=== PATIENT | female | born 1940 | race Caucasian/White ===

== ENCOUNTER 2024-02-13 13:33 | Emergency (ER) | payer MEDICARE, SELFPAY ==
[2024-02-13 13:45] VITALS: BP 166/58
--- NOTE | 2024-02-13 13:49 | ED.GENMED ---
History of Present Illness
<Rj Mccabe PA-C - Last Filed: 02/13/24 16:09>
General
Chief Complaint: Musculo-Skeletal Complaint
Time Seen by Provider: 02/13/24 13:40
History of Present Illness
History of Present Illness:
83 yo female w/ hx of CAD, HLD, HTN and dementia presents to the Emergency Department from [facility] [place] for evaluation after an unwitnessed fall. On arrival pt is soiled with feces. She cannot provide details of the fall. Complains of
headache and L shoulder pain. Not on OAC.
Past History
<Rj Mccabe PA-C - Last Filed: 02/13/24 16:09>
Past History
ED Past Medical History: HTN, Hypercholesterolemia and NIDDM
ED Past Surgical History: Cholecystectomy
Social History
Tobacco: Former smoker
Alcohol: None
Drug: None
Review of Systems
<Rj Mccabe PA-C - Last Filed: 02/13/24 16:09>
Review of Systems
Allergies reviewed?: Yes
All Other Systems: ROS reviewed and negative except as documented in HPI and ROS
Phy Exam
<Rj Mccabe PA-C - Last Filed: 02/13/24 16:09>
Physical Exam
Physical Exam:
GEN: Well appearing, NAD, WDWN
Eyes: PERRLA, EOMs intact, no scleral icterus
HENT: NCAT, oral mucosa moist, no JVD, no cervical adenopathy.
Lungs: CTAB, no wheezes, rales, rhonchi, normal chest wall excursion
Cardiac: RRR, no M/R/G, no peripheral edema. Radial pulses 2+ bilat
Abdomen: S, NT, ND, NABS, no masses or hepatosplenomegaly
Neuro: AO x 2. Unable to move the LUE however normal movement of RUE and BLE
MSK: No gross deformity or ecchymosis. TEnderness to the L proximal humerus, no palpable deformity. L radial pulse 2+
Skin: No rashes, petechiae. Normal color, no pallor or jaundice.
Psych: Calm, cooperative, proper hygiene
Course
<Rj Mccaeb PA-C - Last Filed: 02/13/24 16:09>
Orders/Labs/Results
Orders:
Orders
02/13/24 13:47
CT Cervical Spine W/o Iv Contr Urgent
Comment:
Reason For Exam: fall
CT Head W/o Iv Contrast Urgent
Comment:
Reason For Exam: fall head injury
CR Elbow - Left Min 3 Views Urgent
Comment:
Reason For Exam: fall
CR Humerus - Left Min 2 Views* Urgent
Comment:
Reason For Exam: fall
02/13/24 13:49
Electrocardiogram (*1) Urgent
Reason for Study: QTc Monitoring
EKG- Treatment ONCE
02/13/24 14:05
Complete Blood Count/With Diff Urgent
02/13/24 14:48
Comprehensive Metabolic Panel Urgent
02/13/24 15:25
Oxycodone [Roxicodone] 5 mg PO NOW STA
Abnormal Lab Results
02/13/24 02/13/24
14:05 14:48
Absolute Monos (auto) 0.7 H 10^3/uL
(0.1-0.6)
BUN 19 H mg/dl
(7-17)
Glucose 249 H mg/dl
(70-99)
AST 37 H U/L
(14-36)
Total Protein 5.8 L g/dl
(6.3-8.2)
02/13/24 14:05
02/13/24 14:48
Vital Signs
Initial and Last Documented VS:
Initial Vital Signs
Temp Pulse Resp Pulse Ox
98.3 F 56 20 97
02/13/24 13:37 02/13/24 13:37 02/13/24 13:37 02/13/24 13:37
Last Documented Vital Signs
Temp Pulse Resp BP Pulse Ox
98.3 F 56 20 154/65 96
02/13/24 13:37 02/13/24 13:37 02/13/24 13:37 02/13/24 15:00 02/13/24 15:30
<Opal Thompson MD - Last Filed: 02/13/24 17:46>
Orders/Labs/Results
Orders:
Orders
02/13/24 13:47
CT Cervical Spine W/o Iv Contr Urgent
Comment:
Reason For Exam: fall
CT Head W/o Iv Contrast Urgent
Comment:
Reason For Exam: fall head injury
CR Elbow - Left Min 3 Views Urgent
Comment:
Reason For Exam: fall
CR Humerus - Left Min 2 Views* Urgent
Comment:
Reason For Exam: fall
02/13/24 13:49
Electrocardiogram (*1) Urgent
Reason for Study: QTc Monitoring
EKG- Treatment ONCE
02/13/24 14:05
Complete Blood Count/With Diff Urgent
02/13/24 14:48
Comprehensive Metabolic Panel Urgent
02/13/24 15:25
Oxycodone [Roxicodone] 5 mg PO NOW STA
Abnormal Lab Results
02/13/24 02/13/24
14:05 14:48
Absolute Monos (auto) 0.7 H 10^3/uL
(0.1-0.6)
BUN 19 H mg/dl
(7-17)
Glucose 249 H mg/dl
(70-99)
AST 37 H U/L
(14-36)
Total Protein 5.8 L g/dl
(6.3-8.2)
02/13/24 14:05
02/13/24 14:48
Vital Signs
Initial and Last Documented VS:
Initial Vital Signs
Temp Pulse Resp Pulse Ox
98.3 F 56 20 97
02/13/24 13:37 02/13/24 13:37 02/13/24 13:37 02/13/24 13:37
Last Documented Vital Signs
Temp Pulse Resp BP Pulse Ox
98.3 F 56 20 154/65 96
02/13/24 13:37 02/13/24 13:37 02/13/24 13:37 02/13/24 15:00 02/13/24 15:30
<Rj Mccabe PA-C - Last Filed: 02/13/24 16:09>
MDM/Problems Addressed
MDM/Problems Addressed:
83 yo female presents after a fall. Although unwitnessed, and pt's lack of recollection of events, I suspect this was mechanical given that she reported soiled herself after the fall. History is limited by dementia. CTH/Cervical spine reassuring. L
humeral head fracture identified, pt placed in sling will advise outpatient Ortho f/u. Labs reassuring. The pt's son was updated regarding the findings and plan of care. Pt to be transported back to [facility] via EMS due to dementia
<Rj Mccabe PA-C - Last Filed: 02/13/24 16:09>
*Critical Care Note
Total Time (30-74mins, 75-104mins- exclusive of procedures): Not Applicable
<Opal Thompson MD - Last Filed: 02/13/24 17:46>
Update Note
Update Note:
5:45 PM prescription cannot be transmitted/excepted at original pharmacy that was sent to, therefore at RN request I retransmitted prescription to [facility] pharmacy which was excepted
ED Attending Note
<Rj Mccabe PA-C - Last Filed: 02/13/24 16:09>
-
Portions of this chart may have been created with voice recognition software.� Occasional wrong word or��sound alike� substitutions may have occurred due to the inherent limitations of voice recognition software.
Discharge Plan
Departure
Patient Disposition: Usp/SNF
Date of Disposition: 02/13/24
Time of Disposition: 15:30
Discharge Problem:
Closed fracture of proximal end of left humerus, Laceration of eyebrow, left, Fall
Instructions: Upper Arm Fracture ED
Prescriptions:
New
oxycodone 5 mg tablet
2.5 - 5 mg PO TID PRN (Reason: Pain) Qty: 8 0RF
oxycodone 5 mg capsule
5 mg PO TID PRN (Reason: Pain) Qty: 8 0RF
Rx Instructions:
2.5-5 mg po tid prn pain
No Action
amlodipine 5 MG tablet
5 mg PO HS
atorvastatin 40 MG tablet
40 mg PO QPM
lisinopril 20 MG tablet
20 mg PO DAILY
isosorbide mononitrate 30 MG tablet extended release 24 hr
30 mg PO DAILY
atenolol 25 MG tablet
25 mg PO BID
paroxetine HCl 20 MG tablet
20 mg PO DAILY
omeprazole 20 MG capsule,delayed release(DR/EC)
20 mg PO DAILY
cholecalciferol (vitamin D3) 2,000 UNITS tablet
2,000 units PO DAILY
potassium chloride [K-Marybel] 20 MEQ packet
20 meq PO DAILY Qty: 7 0RF
cephalexin 500 MG capsule
500 mg PO BID Qty: 10 0RF
Referrals:
Cristian Fry DO [Family Provider] -
Lino Rodriguez MD [Active] -
Activity Restrictions/Additional Instructions:
Farrah has an upper humerus fracture. She should remain in the sling until Orthopedic follow up in 1-2 weeks
She may be administered Tylenol as needed for pain, as well as oxycodone for severe breakthrough pain
Interventions
Interventions:
*General Assessment Last Done: 02/13/24 13:37
*Neglect/Abuse Screening Last Done: 02/13/24 13:37
*ED COVID-19 Vaccine History Last Done: 02/13/24 13:53
ED-Musculoskeletal Assessment Last Done: 02/13/24 13:53
Discharge Date and Time
Print Language: ZIMBABWEAN
[2024-02-13 13:52] VITALS: BMI 28.0
[2024-02-13 14:11] LABS: % Eosinophils 3.9 % (0-6); % Immature Granulocytes 0.2 % (0-0.5); % Lymphocytes 23.7 % (20.5-51.1); % Monocytes 7.6 % (1.7-9.3); % Neutrophils 63.6 % (42.2-75.2); Absolute Basophils 0.1 10^3/uL (0-0.2); Absolute Eosinophils 0.3 10^3/uL (0-0.7); Absolute Lymphocytes 2.1 10^3/uL (1.2-3.4); Absolute Monocytes 0.7 10^3/uL (0.1-0.6); Absolute Neutrophils 5.6 10^3/uL (1.4-6.5); Hematocrit 40.4 % (37.0-47.0); Mean Corp Hgb Conc. 34.7 g/dL (33.0-37.0); Mean Corpuscular Hgb 29.7 pg (27.0-31.0); Mean Corpuscular Volume 85.6 fL (81.0-99.0); Mean Platelet Volume 9.8 fL (7.4-10.4); Nucleated Red Blood Cells % 0 %; Platelet Count 210 10^3/uL (130-400); Red Blood Cell Count 4.72 10^6/uL (4.20-5.40); Red Cell Dist. Width 12.1 % (11.5-14.5); White Blood Cell Count 8.8 10^3/uL (4.8-10.8)
[2024-02-13 14:48] VITALS: BP 160/65
[2024-02-13 14:49] VITALS: BP 162/63
[2024-02-13 15:00] VITALS: BP 154/65
[2024-02-13 15:18] LABS: ALT (SGPT) 21 U/L (0-35); AST (SGOT) 37 U/L (14-36); Albumin 3.6 g/dl (3.5-5.0); Alkaline Phosphatase 106 U/L (38-126); Blood Urea Nitrogen 19 mg/dl (7-17); Carbon Dioxide 28 mmol/L (22-30); Chloride 104 mmol/L (98-107); Estimated Creatinine Clearance 63 ml/min; Glucose 249 mg/dl (70-99); Potassium 4.1 mmol/L (3.5-5.1); Sodium 138 mmol/L (135-145); Total Bilirubin 0.6 mg/dl (0.2-1.3); Total Protein 5.8 g/dl (6.3-8.2); eGFR > 60.00
[2024-02-13] MEDS: ROXICODONE 5 MG PO (15:36)
[2024-02-13 17:00] VITALS: BP 161/70
--- NOTE | 2024-02-13 18:42 | ED TECH ---
[facility]UTE [facility]ARE TRANSPORT WAS CANCELLED, FAMILY MEMBER CAME AND PICKED THE PATIENT PER RN.
== END 2024-02-13 18:00 ==
LOC: EMR 13:33
PROVIDERS: Physician Assistant; EMERGENCY PHYSICIAN Emergency Medicine; FAMILY PHYSICIAN Internal Medicine
DX: S42.202A Unspecified fracture of upper end of left humerus, initial encounter for closed fracture (principal); S01.112A Laceration without foreign body of left eyelid and periocular area, initial encounter; W19.XXXA Unspecified fall, initial encounter; F03.90 Unspecified dementia, unspecified severity, without behavioral disturbance, psychotic disturbance, mood disturbance, and anxiety; I10 Essential (primary) hypertension; I25.10 Atherosclerotic heart disease of native coronary artery without angina pectoris; E78.00 Pure hypercholesterolemia, unspecified; Z87.891 Personal history of nicotine dependence
CPT/HCPCS: 99285; 70450; 72125; 73060; 73080; 80053; 85025; 93005

== ENCOUNTER → 2024-10-08 14:01 | Outpatient (REF) | payer MEDICARE, SELFPAY ==
[2024-10-08 15:02] LABS: Blood Urea Nitrogen 15 mg/dl (7-17); Calcium 9.4 mg/dl (8.4-10.2); Carbon Dioxide 29 mmol/L (22-30); Chloride 98 mmol/L (98-107); Glucose 179 mg/dl (70-99); Potassium 4.4 mmol/L (3.5-5.1); Sodium 136 mmol/L (135-145); eGFR > 60.00
== END ==
LOC: OLABPATH 14:01
PROVIDERS: ATTENDING PHYSICIAN Internal Medicine
DX: J10.1 Influenza due to other identified influenza virus with other respiratory manifestations (principal)
CPT/HCPCS: 36415; 80048

== ENCOUNTER → 2025-02-23 10:13 | Outpatient (REF) | payer MEDICARE, SELFPAY ==
[2025-02-23 11:12] LABS: % Basophils 1.1 % (0-2); % Eosinophils 2.2 % (0-6); % Immature Granulocytes 0.3 % (0-0.5); % Lymphocytes 30.7 % (20.5-51.1); % Monocytes 8.4 % (1.7-9.3); % Neutrophils 57.3 % (42.2-75.2); Absolute Basophils 0.1 10^3/uL (0-0.2); Absolute Eosinophils 0.2 10^3/uL (0-0.7); Absolute Lymphocytes 2.7 10^3/uL (1.2-3.4); Absolute Monocytes 0.7 10^3/uL (0.1-0.6); Hematocrit 42.5 % (37.0-47.0); Hemoglobin 14.3 g/dL (12.0-16.0); Mean Corp Hgb Conc. 33.6 g/dL (33.0-37.0); Mean Corpuscular Hgb 29.8 pg (27.0-31.0); Mean Corpuscular Volume 88.5 fL (81.0-99.0); Nucleated Red Blood Cells % 0 %; Platelet Count 201 10^3/uL (130-400); Red Cell Dist. Width 12.1 % (11.5-14.5); White Blood Cell Count 8.7 10^3/uL (4.8-10.8)
[2025-02-23 11:45] LABS: ALT (SGPT) 21 U/L (0-35); AST (SGOT) 30 U/L (14-36); Albumin 3.9 g/dl (3.5-5.0); Alkaline Phosphatase 76 U/L (38-126); Blood Urea Nitrogen 16 mg/dl (7-17); Calcium 9.3 mg/dl (8.4-10.2); Carbon Dioxide 28 mmol/L (22-30); Chloride 105 mmol/L (98-107); Glucose 160 mg/dl (70-99); Potassium 3.7 mmol/L (3.5-5.1); Sodium 139 mmol/L (135-145); Total Bilirubin 0.7 mg/dl (0.2-1.3); Total Protein 6.2 g/dl (6.3-8.2); eGFR > 60.00
[2025-02-23 12:10] LABS: TSH 2.06 uIU/ml (0.47-4.68)
== END ==
LOC: OLABPATH 10:13
PROVIDERS: ATTENDING PHYSICIAN Internal Medicine
DX: I25.10 Atherosclerotic heart disease of native coronary artery without angina pectoris (principal); E11.9 Type 2 diabetes mellitus without complications; E03.9 Hypothyroidism, unspecified
CPT/HCPCS: 36415; 80053; 83036; 84443; 85025

== ENCOUNTER → 2025-05-11 10:13 | Outpatient (REF) | payer MEDICARE, SELFPAY ==
[2025-05-11 11:57] LABS: Hematocrit 45.8 % (37.0-47.0); Hemoglobin 15.0 g/dL (12.0-16.0); Mean Corp Hgb Conc. 32.8 g/dL (33.0-37.0); Mean Corpuscular Volume 91.6 fL (81.0-99.0); Nucleated Red Blood Cells % 0 %; Platelet Count 179 10^3/uL (130-400); Red Cell Dist. Width 12.2 % (11.5-14.5)
[2025-05-11 12:50] LABS: TSH 2.26 uIU/ml (0.47-4.68)
== END ==
LOC: OLABPATH 10:13
PROVIDERS: ATTENDING PHYSICIAN Internal Medicine
DX: E11.9 Type 2 diabetes mellitus without complications (principal); F02.A0 Dementia in other diseases classified elsewhere, mild, without behavioral disturbance, psychotic disturbance, mood disturbance, and anxiety; I10 Essential (primary) hypertension
CPT/HCPCS: 36415; 84443; 85025